=== PATIENT | female | born 1985 | race Caucasian/White ===

== ENCOUNTER 2020-02-26 15:39 | Outpatient (CLI) | payer BC, SELFPAY ==
[2020-02-26 16:41] LABS: Beta HCG Quantitative < 2.39 mIU/ML
[2020-02-26 16:55] LABS: Thyroid Stimulating Hormone 0.888 uIU/mL (0.465-4.680)
[2020-02-26 17:01] LABS: Free T4 Free Thyroxine 0.93 ng/mL (0.78-2.19)
[2020-03-02 06:38] LABS: Prolactin 5.4 ng/mL (***)
== END 2020-02-26 15:40 | disposition home or self-care (01) ==
PROVIDERS: PCP Family Medicine; Visit Provider Nurse Practitioner
DX: N93.8 Other specified abnormal uterine and vaginal bleeding (principal)
CPT/HCPCS: 36415; 84146; 84439; 84443; 84702

== ENCOUNTER → 2021-12-24 01:47 | Outpatient (CLI) | payer BC, SELFPAY ==
[2021-12-24 13:06] LABS: SARS-CoV-2 RNA PCR Negative
== END ==
DX: Z20.822 Contact with and (suspected) exposure to COVID-19 (principal)
CPT/HCPCS: C9803; U0003; U0005

== ENCOUNTER 2022-02-13 07:15 | Outpatient (CLI) | payer BC, SELFPAY ==
--- NOTE | ~2022-02-13 | XR_ITS ---
EXAMINATION: XR chest 2V 02/13/2022 07:33 INDICATION: Paresthesias. Chest pain. PROCEDURE: 2 view chest COMPARISON: 03/10/2015 FINDINGS: The lungs are clear. The cardiomediastinal silhouette is within normal limits. There are no pleural effusions. There is no pneumothorax suspected. There are bilateral nipple shadows. IMPRESSION: 1: NO ACUTE CARDIOPULMONARY DISEASE. Reviewed, dictated and finalized at location A.
--- NOTE | ~2022-02-13 | XR_ITS ---
EXAM: XR cervical spine 4-5V DATE: 02/13/2022 07:34 HISTORY: PARESTHESIAS BILAT ARM NECK AND BACK PAIN . COMPARISON: None available. FINDINGS: Craniocervical association and atlantoaxial joint are normal. No prevertebral soft tissue swelling. Straightening of the cervical spine as can occur with positioning or spasm. Vertebral irene s are aligned. Vertebral body heights and disc spaces are maintained. Normal facets and posterior rivas ments. IMPRESSION: Normal cervical spine radiograph findings. Reviewed, dictated and finalized at location K.
== END 2022-02-13 07:16 | disposition home or self-care (01) ==
LOC: ANHIMG 07:18
PROVIDERS: PCP Internal Medicine; Visit Provider Internal Medicine
DX: R20.2 Paresthesia of skin (principal)
CPT/HCPCS: 71046; 72050

== ENCOUNTER → 2022-04-10 12:58 | Outpatient (CLI) | payer BC, SELFPAY ==
--- NOTE | ~2022-04-10 | US_ITS ---
EXAMINATION: US transvaginal DATE: 04/10/2022 13:17 INDICATION: Abnormal uterine bleeding TECHNIQUE: Multiple endovaginal sonographic images of the pelvis were obtained. COMPARISON: 12/06/2017 FINDINGS: The uterus measures 7.9 x 5.3 x 5.5 cm. The endometrial complex measures 12 mm ovaries. The right ovary measures 3.5 x 1.8 x 2.3 cm. The left ovary measures 3.1 x 2.8 x 2.8 cm. There is normal vascular flow in the ovaries. There is a small amount of likely physiologic free fluid in the pelvis . IMPRESSION: 1. No sonographic correlate for the patient's symptoms. Reviewed, dictated and finalized at location B.
== END ==
PROVIDERS: PCP Internal Medicine; Visit Provider Nurse Practitioner
DX: N93.8 Other specified abnormal uterine and vaginal bleeding (principal)
CPT/HCPCS: 76830

== ENCOUNTER → 2022-10-17 09:16 | Outpatient (CLI) | payer BC, SELFPAY ==
--- NOTE | ~2022-10-17 | MMUS_ITS ---
EXAMINATION: MM diagnostic wili BI w robyn, US breast BI complete HISTORY: Palpable left breast lump. Right breast pain. TECHNIQUE: Additional 3-D tomosynthesis images of the breasts were performed and synthetic 2-D images were generated. CAD analysis was submitted and interpreted. High resolution bilateral complete breas t ultrasound was performed. COMPARISON: None BREAST PARENCHYMAL COMPOSITION: The breasts are extremely dense, which lowers the sensitivity of mamm ography FINDINGS: MAMMOGRAPHIC FINDINGS: There are clustered indeterminate regional calcifications in the upper outer quadrant of the right br east, asymmetric compared to the left. There are no suspicious masses or architectural distortion. ULTRASOUND: Complete bilateral US of all 4 quadrants of the breasts and retroareolar region was reviewed. Right breast: At 7:00, 4 cm from the nipple there is a minimally complicated 3 mm cyst. At 10:00, 10 cm from the nipple there is a small benign-appearing hypoechoic mass measuring 5 mm, likely intramamm kerry lymph node. At 11:00, 6 cm from the nipple there is a 3 mm cyst. Left breast: Normal heterogeneous echotexture without focal solid or cystic mass. IMPRESSION: 1. Clustered indeterminate regional calcifications upper outer quadrant of the right breast. 2. Stereotactic right breast biopsy recommended. BI-RADS category 4, suspicious findings. Reviewed, dictated and finalized at location A. IMPRESSION: 1. Clustered indeterminate regional calcifications upper outer quadrant of the right breast. 2. Stereotactic right breast biopsy recommended. BI-RADS category 4, suspicious findings.
== END ==
PROVIDERS: PCP Obstetrics & Gynecology Gynecology; Visit Provider Internal Medicine
DX: N64.4 Mastodynia (principal); N63.20 Unspecified lump in the left breast, unspecified quadrant; R92.8 Other abnormal and inconclusive findings on diagnostic imaging of breast
CPT/HCPCS: 76641; 77062; 77066; G0279